=== PATIENT | female | born 1995 | race African-American/Black ===

== ENCOUNTER 2022-10-22 13:46 | Emergency (ER) | payer MEDICAID, SELFPAY ==
--- NOTE | ~2022-10-22 | CT_ITS ---
EXAMINATION: CT ABDOMEN AND PELVIS WITHOUT CONTRAST CLINICAL INFORMATION: Left flank pain. COMPARISON: None TECHNIQUE: Multidetector volumetric imaging was performed from the superior aspect of the liver through the pubic symphysis. Sagittal and coronal reformatted images were obtained on the technologist's workstation. This CT examination was performed using dose optimization techniques as appropriate, variously including the following: *Automated exposure control *Adjustment of mA and/or kV according to patient size (this includes techniques or standardized protocols for targeted exams where dose is matched to indication/reason for exam; i.e. extremities or head) *Use of iterative reconstruction technique DLP: 311 mGy-cm FINDINGS: LUNG BASES: The visualized lung bases are unremarkable. LIVER, GALLBLADDER, AND BILIARY TREE: The liver is normal in size, shape, and attenuation. No focal hepatic lesion or biliary ductal dilatation is present. The gallbladder is unremarkable with no evidence of radiopaque gallstones, gallbladder wall thickening, or obvious pericholecystic inflammatory changes. PANCREAS: Unremarkable. SPLEEN: Unremarkable. ADRENAL GLANDS: Unremarkable. KIDNEYS AND URETERS: The kidneys are normal in size, shape, and attenuation. No hydronephrosis, hydroureter, or calculi seen. No perinephric stranding. BLADDER: Unremarkable. GASTROINTESTINAL TRACT: The small and large bowel are unremarkable. The appendix is unremarkable. ABDOMINAL WALL: No significant hernia is appreciated. LYMPH NODES: Normal. VASCULAR: Unremarkable. PELVIC VISCERA: The uterus and right ovary are unremarkable. The left ovary contains a possible 1.4 cm cyst with precontrast Hounsfield value of -0.6 units (3:60). OSSEOUS STRUCTURES: There is a mild L3 anterior upper endplate compression fracture, which appears similar in appearance to lumbar spine radiographs dated 11/09/2021. No acute or aggressive osseous abnormality is seen. CT/CT abdomen pelvis wo IV con IMPRESSION: 1. No bowel obstruction, free intraperitoneal air or abscess is seen. There is no appendicitis or diverticulitis. 2. No urinary calculus or obstructive uropathy is seen bilaterally. 3. The left ovary contains a 1.4 cm low-attenuation probable benign cyst. This could be more fully evaluate dedicated pelvic ultrasound, if clinically indicated. 4. No abdominopelvic mass, free fluid or lymphadenopathy is seen. 5. There is a chronic mild L3 anterior upper endplate compression fracture. Fleischner guidelines were followed.
[2022-10-22 16:40] VITALS: BP 122/66; PULSE 70; RESP 16; TEMP 36.6; O2SAT 100; BMI 21.2
[2022-10-22 20:25] LABS: Appearance Urine Clear; Color Urine Yellow; Glucose Urine UA Negative (Negative); Leukocyte Esterase Urine Trace (Negative); Nitrite Urine Negative (Negative); PH 5.5 (5.0-9.0); Specific Gravity - Urine 1.025 (1.005-1.025); UMIC TRIGGER UACC YES; Urine Blood Large (3+) (Negative); Urine Ketones Trace mg/dL (Negative); Urine Protein 30 (1+) mg/dL (Neg-Trace)
[2022-10-22 20:26] LABS: UPreg QC Valid YES; Urine Pregnancy NEGATIVE (NEGATIVE)
[2022-10-22 21:01] LABS: Influenza A PCR NEGATIVE (Negative); Influenza B PCR NEGATIVE (Negative); Resp Syncy Virus RNA Qual PCR NEGATIVE (Negative); SARS COV2 PCR INHOUSE NEGATIVE (Negative)
[2022-10-22 21:15] VITALS: BP 118/79; PULSE 62; RESP 16; TEMP 36.2; O2SAT 99
[2022-10-22 21:32] LABS: Bacteria Urine Trace (None Seen); WBC Urine 0-5 /HPF (0-5)
--- NOTE | 2022-10-22 21:49 | ED_ITS ---
HPI - General Adult General Chief complaint: Back Pain/Injury Stated complaint: back pain , nauseous Time Seen by Provider: 10/22/22 21:21 Source: patient Mode of arrival: ambulatory History of Present Illness HPI narrative: 27-year-old female without significant past medical history, has Nexplanon in place and states she had her period last week and reports that had she had onset of left flank/back pain since Thursday has been associated with some mild nausea/vomiting and she denies any traumatic injury such as falls or MVAs and denies any diarrhea or urinary symptoms. She denies any nausea or vomiting and has had chills but no fevers and denies any shortness of breath or chest pain. Related Data Allergies Allergy/AdvReac Type Severity Reaction Status Date / Time No Known Allergies Allergy Unverified 08/09/20 16:33 Review of Systems Review of Systems: Pertinent positives and negatives as stated in HPI 10 point review of systems is otherwise negative. PMFSH Past Medical History Source: nursing notes reviewed Social History Social History Advance Directives: No Advance Directives Information Provided: No Physical Exam ED Vital Signs: Vital Signs - 24 hr 10/22/22 16:40 10/22/22 21:15 Temperature 97.9 F 97.2 F Pulse Rate 70 62 Respiratory Rate 16 16 Blood Pressure 122/66 118/79 Pulse Oximetry 100 99 Oxygen Delivery Method Room Air Room Air BMI result Body Mass Index 21.2 VITAL SIGNS: Reviewed. GENERAL: Well developed, well nourished, in no acute distress. HEAD: Normocephalic/atraumatic EYES: PERRLA, EOMI EARS: Ext canals without abnormality OROPHARYNX: no oral lesions noted, posterior pharynx clear LUNGS: Normal breath sounds. No adventitious sounds or accessory muscle use. SpO2<100> CARDIOVASCULAR: Regular rate and rhythm without noted murmurs ABDOMEN: Soft, non-tender, non-distended with bowel sounds, no CVA tenderness MUSCULOSKELETAL: No tenderness, deformities, or effusions noted on gross inspection. EXTREMITIES: No cyanosis, clubbing or edema. SKIN: Inspection of the skin reveals no rashes NEUROLOGIC: Alert and oriented x 4. Strength and sensation to light touch were grossly intact x 4. Course Course Course Narrative: 27-year-old female with history and clinical presentation after review of all in vestigations suggestive of possible renal colic or musculoskeletal in nature. UA does demonstrate hematuria although suspect that this may be due to menstrual source but given remaining history cannot rule out renal colic. Urine is negative. Review of all investigations negative for acute findings other than chronic compression fracture of L3 which is unusual for a person of this age. This result was discussed with patient at bedside, she received combination analgesics to include a lidocaine patch and she was strongly encouraged to follow-up with primary care provider and undergo further outpatient testing for the etiology of her compression fracture. Medications Administered Discontinued Medications Generic Name Dose Route Start Last Admin Trade Name Freq PRN Reason Stop Dose Admin Acetaminophen 975 mg 10/22/22 21:52 10/22/22 22:12 Acetaminophen 325 Mg Tablet PO 10/22/22 21:53 975 mg ONCE ONE Administration Ketorolac Tromethamine 15 mg 10/22/22 21:52 10/22/22 22:11 Ketorolac Tromethamine 15 Mg/Ml Vial IM 10/22/22 21:53 15 mg ONCE ONE Administration Ondansetron HCl 4 mg 10/22/22 21:52 10/22/22 22:12 Ondansetron Odt 4 Mg Tab.Rapdis TRANSLINGU 10/22/22 21:53 4 mg ONCE ONE Administration Medical Decision Making Lab Data Labs: Lab Results 10/22/22 10/22/22 10/22/22 Range/Units 20:13 20:14 20:14 Urine Color Yellow Urine Appearance Clear Urine pH 5.5 (5.0-9.0) Ur Specific [place] 1.025 (1.005-1.025) Urine Protein 30 (1+) H (Neg-Trace) mg/dL Urine Glucose (UA) Negative (Negative) mg/dL Urine Ketones Trace (Negative) mg/dL Urine Blood Large (3+) H (Negative) Urine Nitrite Negative (Negative) Ur Leukocyte Esterase Trace H (Negative) Urine RBC 3-5 H (0-2) /HPF Urine WBC 0-5 (0-5) /HPF Ur Squamous Epith Cells 6-10 (0-2) /HPF Urine Bacteria Trace (None Seen) Hyaline Casts 3-5 (0-2) /LPF Urine Test NEGATIVE (NEGATIVE) Influenza Type A (PCR) NEGATIVE (Negative) Influenza Type B (PCR) NEGATIVE (Negative) RSV RNA Qual (PCR) NEGATIVE (Negative) SARS-CoV-2 RNA (RT-PCR) NEGATIVE (Negative) Discharge Plan Discharge Clinical Impression: Compression fracture of L3 vertebra Patient Disposition: Home, Self-Care Instructions: Osteoporosis (ED), Vertebral Compression Fracture (ED) Additional Instructions: 1. Tylenol 1000 mg, orally, every 6 hours as needed for pain control. Do not exceed 4000 mg within 24 hours. 2. Ibuprofen 400 mg, orally with milk or food, every 6 hours as needed for pain control. 3. Lidocaine patch, apply to area of maximal tenderness as directed on the outside packaging. 4. You are very young to have a compression fracture of your vertebrae, you need to follow-up with your primary care provider to undergo further outpatient testing to see why this is happening. Return to the ER for worsening symptoms.
[2022-10-22] MEDS: Ketorolac Tromethamine 15 MG/ML VIAL IM (22:11)
[2022-10-22] MEDS: Acetaminophen 325 MG TABLET 975 MG PO (22:12)
[2022-10-22] MEDS: Ondansetron ODT 4 MG TAB.RAPDIS TRANSLINGU (22:12)
[2022-10-22] MEDS: Lidocaine 4 % Patch ADH..PATCH 1 PATCH TRANSDERMA (22:39)
--- NOTE | 2022-10-22 22:44 | PC.NURSE ---
Discharge instructions reviewed with pt. Pt verbalizes understanding.
== END 2022-10-22 22:45 | disposition home or self-care (01) ==
PROVIDERS: Emergency Medicine Emergency Medical Services; Physician Assistant; Emergency Provider Student in an Organized Health Care Education/Training Program
DX: M48.56XA Collapsed vertebra, not elsewhere classified, lumbar region, initial encounter for fracture (principal); Z20.822 Contact with and (suspected) exposure to COVID-19
CPT/HCPCS: 0241U; 74176; 81001; 81025; 96372; 99284; J1885